=== PATIENT | male | born 1970 | race African-American/Black ===

== ENCOUNTER 2022-12-18 10:08 | Emergency (ER) | payer OTHER ==
[2022-12-18 10:21] VITALS: BP 162/84; PULSE 97; RESP 18; TEMP 98.4; BMI 33.4
[2022-12-18 11:18] LABS: BASO % 0.5 % (0-2.0); EOS % 2.3 % (0-4.5); HEMATOCRIT 36.6 % (35.4-49); HEMOGLOBIN 12.4 GM/dL (11.7-16.9); LYMPH % 14.6 % (8-40); MCH 31.4 pg (25.7-33.7); MCHC 33.9 g/dl (32.0-35.9); MEAN CELL VOLUME 92.7 fl (80-96); MEAN PLT VOLUME 6.9 fl (7.5-11.1); MONO % 10.2 % (3.8-10.2); NEUT % 72.4 % (42.8-82.8); PLATELET COUNT 439 10^3/uL (134-434); RBC 3.95 M/mm3 (4.00-5.60); RDW 12.9 % (11.9-15.9); WHITE BLOOD COUNT 6.1 K/mm3 (4.0-10.0)
[2022-12-18 11:42] LABS: POTASSIUM 4.2 mmol/L (3.5-5.1)
[2022-12-18 11:44] LABS: CALCIUM 8.7 mg/dL (8.5-10.1)
[2022-12-18 11:45] LABS: BLOOD UREA NITROGEN 6.4 mg/dL (7-18); MAGNESIUM 1.9 mg/dL (1.8-2.4)
[2022-12-18 11:47] LABS: CREATININE 0.7 mg/dL (0.55-1.3)
[2022-12-18 11:48] LABS: PHOSPHOROUS 3.4 mg/dL (2.5-4.9)
[2022-12-18 11:49] LABS: BILIRUBIN,TOTAL 0.4 mg/dL (0.2-1); TOT PROT 7.1 g/dl (6.4-8.2)
[2022-12-18 11:53] LABS: N-TERMINAL BNP 60.8 pg/ml (5-125)
[2022-12-18 12:46] LABS: PH,URINE 6.5 (5.0-8.0); URINE APPEARANCE CLEAR; URINE BILIRUBIN NEGATIVE (NEGATIVE); URINE COLOR YELLOW; URINE GLUCOSE (UA) NEGATIVE (NEGATIVE); URINE KETONE NEGATIVE (NEGATIVE); URINE LEUK ESTERASE NEGATIVE (NEGATIVE); URINE NITRITE NEGATIVE (NEGATIVE); URINE PROTEIN NEGATIVE (NEGATIVE)
== END 2022-12-18 12:58 | disposition home or self-care (01) ==
LOC: JER 10:08
DX: R60.0 Localized edema (principal); M79.671 Pain in right foot; M79.672 Pain in left foot
CPT/HCPCS: 36415; 71045-TC-FY; 80053; 81003; 83735; 83880; 84100; 84484; 85025; 93005; 93010; 93308; 93970; 99285-25

== ENCOUNTER 2023-01-28 11:03 | Emergency (ER) | payer OTHER ==
[2023-01-28 11:17] VITALS: BMI 30.2
[2023-01-28] MEDS ORDERED: ACETAMINOPHEN 325 MG TABLET (FP) PO ONE (12:41)
[2023-01-28 12:44] LABS: BASO % 0.6 % (0-2.0); EOS % 0.7 % (0-4.5); HEMATOCRIT 33.1 % (35.4-49); HEMOGLOBIN 11.3 GM/dL (11.7-16.9); LYMPH % 11.6 % (8-40); MCH 30.1 pg (25.7-33.7); MEAN CELL VOLUME 88.3 fl (80-96); MEAN PLT VOLUME 6.2 fl (7.5-11.1); MONO % 10.9 % (3.8-10.2); NEUT % 76.2 % (42.8-82.8); PLATELET COUNT 597 10^3/uL (134-434); RBC 3.74 M/mm3 (4.00-5.60); RDW 13.5 % (11.9-15.9)
[2023-01-28] MEDS ORDERED: ACETAMINOPHEN 325 MG TABLET (FP) ONE (12:52)
[2023-01-28 13:05] LABS: CHLORIDE 98 mmol/L (98-107); POTASSIUM 4.4 mmol/L (3.5-5.1); SODIUM 132 mmol/L (136-145)
[2023-01-28 13:06] LABS: CALCIUM 8.9 mg/dL (8.5-10.1)
[2023-01-28 13:07] LABS: ALBUMIN 2.8 g/dl (3.4-5.0); ANION GAP 9 MMOL/L (8-16); CO2 25 mmol/L (21-32); GLUCOSE,RANDOM 104 mg/dL (74-106); MAGNESIUM 1.9 mg/dL (1.8-2.4)
[2023-01-28 13:11] LABS: CREATININE 0.7 mg/dL (0.55-1.3); SGOT/AST 23 U/L (15-37); SGPT/ALT 44 U/L (13-61)
[2023-01-28 13:12] LABS: BILIRUBIN,TOTAL 0.5 mg/dL (0.2-1); TOT PROT 7.8 g/dl (6.4-8.2)
[2023-01-28 13:13] LABS: ALK PHOS 208 U/L (45-117)
[2023-01-28 13:45] VITALS: BP 162/92; PULSE 116; RESP 19; TEMP 99.2
[2023-01-28] MEDS ORDERED: SODIUM CHLORIDE 0.9% 500 ML INFUS.BAG IV ONE ×2 (14:12→14:27)
[2023-01-28] MEDS ORDERED: chlordiazePOXIDE HCL 25 MG CAPSULE PO ONE (18:45)
[2023-01-28] MEDS ORDERED: chlordiazePOXIDE HCL 25 MG CAPSULE ONE (18:51)
== END 2023-01-28 19:55 | disposition left against medical advice (07) ==
LOC: JER 11:03
PROC: 3E033GC Introduction of Other Therapeutic Substance into Peripheral Vein, Percutaneous Approach (ICD-10-PCS; principal; 2023-01-28)
DX: M25.571 Pain in right ankle and joints of right foot (principal); M25.562 Pain in left knee; F10.930 Alcohol use, unspecified with withdrawal, uncomplicated; M25.561 Pain in right knee; R22.41 Localized swelling, mass and lump, right lower limb; Y90.0 Blood alcohol level of less than 20 mg/100 ml
CPT/HCPCS: 36415; 71046-TC-FY; 71275-TC; 73564-TC-LT-FY; 73564-TC-RT-FY; 80053; 80307; 83735; 83880; 84439; 84443; 84484; 85025; 93005; 93010; 99285-25; Q9967

== ENCOUNTER 2023-03-07 11:42 | Emergency (ER) | payer OTHER ==
[2023-03-07 11:53] VITALS: BMI 24.3
[2023-03-07] MEDS ORDERED: ACETAMINOPHEN 500 MG TABLET (FP) PO ONE (12:42)
[2023-03-07] MEDS ORDERED: ACETAMINOPHEN 500 MG TABLET (FP) ONE (12:52)
[2023-03-07 13:21] VITALS: BP 140/68; PULSE 80; RESP 18; TEMP 98.4
== END 2023-03-07 13:21 | disposition home or self-care (01) ==
LOC: JERFT 11:42
DX: M79.671 Pain in right foot (principal); M79.672 Pain in left foot
CPT/HCPCS: 99283-25